=== PATIENT | male | born 1995 | race African-American/Black ===

== ENCOUNTER 2021-10-26 01:06 | Emergency (ER) | payer OTHER, SELFPAY ==
[2021-10-26 01:09] VITALS: BP 134/78; PULSE 66; RESP 16; TEMP 36.2; O2SAT 98
--- NOTE | 2021-10-26 01:26 | ED.DENTAL ---
HPI - Dental/Oral General Chief complaint: Dental/Oral Stated complaint: dental pain Time Seen by Provider: 10/26/21 01:08 History of Present Illness HPI Narrative: 26-year-old male presents the emergency room complaints of left lower molar pain to the 17th tooth. States pain has been present for 3 weeks, but has worsened tonight. Patient has appointment with oral surgeon to have tooth removed in 10 days Related Data Allergies Allergy/AdvReac Type Severity Reaction Status Date / Time No Known Allergies Verified 10/26/21 01:17 Review of Systems Review of Systems: CONSTITUTIONAL: Denies fever, chills, or sweats. EYES: Denies visual changes, redness, or discharge. ENT: Reports dental pain CARDIOVASCULAR: Denies chest pain, palpitations, or edema. RESPIRATORY: Denies cough or dyspnea. GASTROINTESTINAL: Denies abdominal pain, nausea, vomiting, or diarrhea. GENITOURINARY: Denies dysuria or hematuria. SKIN: Denies rash or itching. MUSCULOSKELETAL: Denies back pain, joint pain, or myalgia. NEUROLOGIC: Denies headache, numbness, dizziness, or weakness. PSYCHIATRIC: Denies anxiety or depression. Exam Narrative: GENERAL: Well-appearing, well-nourished, and in no acute distress. HEAD: Normocephalic, atraumatic. EYES: PERRLA and EOMI. ENT: Tenderness to the 17th tooth, pharyngeal erythema,., No obvious fracture NECK: Supple. No adenopathy or masses. No carotid bruits or JVD CHEST: Clear to auscultation. No respiratory distress. No wheezes rales or rhonchi HEART: Regular rate and rhythm. No murmur heard. Normal peripheral pulses. ABDOMEN: Soft, nontender, nondistended, normal active bowel sounds. EXTREMITIES: Normal range of motion. No edema. SKIN: Warm, dry, no rash. NEURO: No focal deficits. Alert and oriented x3. PSYCH: Normal mood and affect. Course Vital Signs Vital signs: Vital Signs Temperature 36.2 C L 10/26/21 01:09 Pulse Rate 66 10/26/21 01:09 Respiratory Rate 16 10/26/21 01:09 Blood Pressure 134/78 10/26/21 01:09 Pulse Oximetry 98 10/26/21 01:09 Temperature 36.2 C L 10/26/21 01:09 Pulse Rate 66 10/26/21 01:09 Respiratory Rate 16 10/26/21 01:09 Blood Pressure 134/78 10/26/21 01:09 Pulse Oximetry 98 10/26/21 01:09 Discharge Plan Discharge Clinical Impression: Toothache Patient Disposition: Home, Self-Care Condition: Stable Instructions: Antibiotic Form Prescriptions: New amoxicillin-pot clavulanate 875-125 mg tablet 1 tablet PO Q12H Qty: 20 RF: 0 meloxicam 15 mg tablet 15 mg PO DAILY Qty: 14 RF: 0 Follow-up/Referrals: Jaime,Selvin Orozco MD [Primary Care Provider] - Stand Alone Forms: Work/School Release IP Time of Disposition: :
[2021-10-26] MEDS: LIDOCAINE HCL 2% LOCAL INJ 20 ML VIAL (01:33)
== END 2021-10-26 01:35 | disposition home or self-care (01) ==
PROVIDERS: Emergency Provider Nurse Practitioner Family; PCP Pediatrics
DX: K08.89 Other specified disorders of teeth and supporting structures (principal)
CPT/HCPCS: 99283